=== PATIENT | male | born 1975 | race Caucasian/White ===

== ENCOUNTER → 2022-05-08 | Outpatient (CLI) | payer BC ==
--- NOTE | 2022-05-08 18:25 | Diagnostic Imaging Report ---
EXAMINATION: Right knee radiographs, 3 views. COMPARISON: None. HISTORY: 46-year-old male, fall down stairs. Right knee pain. FINDINGS: The right patella is normally positioned. The joint spaces are well preserved. There is no knee joint effusion. There is no identified acute fracture. IMPRESSION: No acute bony abnormality of the right knee. Dictated by: Dictated on workstation # [id number]
--- NOTE | 2022-05-08 19:42 | Diagnostic Imaging Report ---
INDICATION: Tripped and fall, pain. 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 Some soft tissue ossifications superior to the greater trochanter present. More dense calcifications cephalad to the trochanter may reflect an old distracted trochanteric avulsion. An acute appearing bony abnormality, however, is not identified. Prosthesis appeared intact. No osteolysis. IMPRESSION: Chronic appearing calcifications and postoperative findings, intact total hip. No acute abnormality. Dictated by: Dictated on workstation # [id number]
== END ==
LOC: ORTHO 14:09
PROVIDERS: ATTEND Orthopaedic Surgery
DX: S80.01XA Contusion of right knee, initial encounter (principal); M25.551 Pain in right hip; Z96.641 Presence of right artificial hip joint; W10.9XXA Fall (on) (from) unspecified stairs and steps, initial encounter
CPT/HCPCS: 73502; 73562; 99202